=== PATIENT | female | born 1990 | race African-American/Black ===

== ENCOUNTER 2024-07-04 05:15 | Emergency (ER) | payer SELFPAY ==
[2024-07-04 05:30] VITALS: BP 130/97; PULSE 61; RESP 18; TEMP 98.4; BMI 30.9
[2024-07-04] MEDS ORDERED: FAMOTIDINE 20 MG TABLET ONE (05:49)
[2024-07-04] MEDS ORDERED: ACETAMINOPHEN 325 MG TABLET (FP) ONE (05:49)
[2024-07-04] MEDS ORDERED: MAG HYDROX/AL HYDROX/SIMETH 30 ML UNIT-DOSE CUP ONE (05:50)
[2024-07-04] MEDS: ACETAMINOPHEN 500 MG TABLET (FP) PO ONE (05:56)
[2024-07-04] MEDS: MAG HYDROX/AL HYDROX/SIMETH 30 ML UNIT-DOSE CUP PO ONE (05:56)
[2024-07-04] MEDS: FAMOTIDINE 20 MG TABLET PO ONE (05:56)
[2024-07-04] MEDS ORDERED: SIMETHICONE 80 MG TAB.CHEW (FP) ONE (06:20)
[2024-07-04] MEDS: SIMETHICONE 80 MG TAB.CHEW (FP) PO ONE (06:28)
== END 2024-07-04 06:47 | disposition home or self-care (01) ==
LOC: JER 05:15
DX: R10.13 Epigastric pain (principal)
CPT/HCPCS: 93005; 93010; 99284-25